=== PATIENT | female | born 1995 | race African-American/Black ===

== ENCOUNTER 2018-05-08 05:04 | Emergency (ER) | payer MEDICAID ==
[~2018-05-08] VITALS: Ht 170.2 cm; Wt 59.0 kg
[~2018-05-08 05:04] MED LIST: DOXYCYCLINE; IBUP-2030; TYLENOL
[2018-05-08] MEDS ORDERED: SODIUM CHLORIDE 0.9% 1,000 ML IV ONE (08:54)
[2018-05-08] MEDS ORDERED: ONDANSETRON HCL 4MG/2ML VIAL IV STA (08:54)
[2018-05-08 09:14] LABS: BASOPHILS % 0.4 % (0.0-2.0); EOSINOPHILS % 0.8 % (0.0-5.0); HEMATOCRIT. 40.3 % (36.0-48.0); HEMOGLOBIN. 13.4 g/dL (12.0-16.0); LYMPHOCYTES % 19.2 % (20.0-50.0); MEAN CORPUSCULAR HEMOGLOBIN 30.5 pg (28.0-32.0); MEAN CORPUSCULAR VOLUME 91.8 fL (81.0-99.0); MEAN PLATELET VOLUME 9.9 fl (7.4-10.4); MONOCYTES % 13.6 % (2.0-8.0); PLATELET 179 x1000/uL (130-400); RED BLOOD CELL COUNT 4.39 mill/uL (4.2-5.4); RED CELL DISTRIBUTION WIDTH 12.9 % (11.6-14.6)
[2018-05-08 09:21] LABS: CHLORIDE 106 mEq/L (98-107)
[2018-05-08 10:32] LABS: CLARITY URINE CLOUDY (CLEAR); COLOR URINE YELLOW (YELLOW); KETONES URINE NEGATIVE (NEGATIVE); LEUKOCYTE ESTERASE URINE 1+ (NEGATIVE); NITRITE URINE POSITIVE (NEGATIVE); OCCULT BLOOD URINE 2+ (NEGATIVE); PH URINE 5.5 (4.5-8.0); PROTEIN URINE NEGATIVE (NEGATIVE); SPECIFIC GRAVITY URINE 1.022 (1.005-1.030)
[2018-05-08 13:34] VITALS: BP 100/61
== END 2018-05-08 13:50 | disposition home or self-care (01) ==
LOC: ER 05:04
DX: A08.4 Viral intestinal infection, unspecified (principal); N39.0 Urinary tract infection, site not specified; Z88.0 Allergy status to penicillin
CPT/HCPCS: 36415; 80053; 81003; 81025; 83690; 85025; 87077; 87086; 87186; 96361; 96374; 99285; J2405; J7030

== ENCOUNTER 2018-07-19 23:38 | Emergency (ER) | payer MEDICAID ==
[~2018-07-19] VITALS: Ht 170.2 cm; Wt 61.0 kg
[2018-07-20] MEDS ORDERED: KETOROLAC 60MG/2ML VIAL IM STA (01:43)
[2018-07-20 03:30] VITALS: BP 129/75
== END 2018-07-20 03:52 | disposition home or self-care (01) ==
LOC: ER 23:38
DX: S20.211A Contusion of right front wall of thorax, initial encounter (principal); S30.0XXA Contusion of lower back and pelvis, initial encounter; M25.552 Pain in left hip; W01.198A Fall on same level from slipping, tripping and stumbling with subsequent striking against other object, initial encounter; Y93.89 Activity, other specified; Y92.090 Kitchen in other non-institutional residence as the place of occurrence of the external cause
CPT/HCPCS: 71101; 81025; 96372; 99284; J1885

== ENCOUNTER 2019-08-07 02:22 | Emergency (ER) | payer MEDICAID ==
[~2019-08-07] VITALS: Ht 170.2 cm; Wt 59.0 kg
[2019-08-07 03:56] VITALS: BP 93/61
== END 2019-08-07 06:05 | disposition home or self-care (01) ==
LOC: ER 02:22
DX: M79.661 Pain in right lower leg (principal)
CPT/HCPCS: 93971; 99284

== ENCOUNTER 2021-07-10 09:51 | Emergency (ER) | payer MEDICAID ==
[~2021-07-10] VITALS: Ht 170.2 cm; Wt 61.0 kg
[2021-07-10 10:01] VITALS: BP 125/90
[2021-07-10 10:27] LABS: CLARITY URINE CLEAR (CLEAR); COLOR URINE YELLOW (YELLOW); KETONES URINE NEGATIVE (NEGATIVE); LEUKOCYTE ESTERASE URINE TRACE (NEGATIVE); NITRITE URINE NEGATIVE (NEGATIVE); OCCULT BLOOD URINE TRACE (NEGATIVE); PH URINE 6.5 (4.5-8.0); PROTEIN URINE NEGATIVE (NEGATIVE); SPECIFIC GRAVITY URINE 1.003 (1.005-1.030); UROBILINOGEN URINE 0.2 E.U./dL (0.2-1.0)
[2021-07-10 10:37] LABS: BASOPHILS % 0.8 % (0.0-2.0); EOSINOPHILS % 1.6 % (0.0-5.0); HEMATOCRIT. 38.6 % (36.0-48.0); HEMOGLOBIN. 13.1 g/dL (12.0-16.0); LYMPHOCYTES % 25.7 % (20.0-50.0); MEAN CORPUSCULAR HEMOGLOBIN 30.8 pg (28.0-32.0); MEAN PLATELET VOLUME 9.6 fl (7.4-10.4); MONOCYTES % 9.4 % (2.0-8.0); NEUTROPHILS % 62.5 % (40.0-76.0); PLATELET 192 x1000/uL (130-400); RED BLOOD CELL COUNT 4.25 mill/uL (4.2-5.4)
== END 2021-07-10 12:03 | disposition home or self-care (01) ==
LOC: ER 09:51
DX: K92.1 Melena (principal); R30.0 Dysuria; Z88.0 Allergy status to penicillin
CPT/HCPCS: 36415; 81003; 85025; 99283

== ENCOUNTER 2023-06-21 10:18 | Emergency (ER) | payer MEDICAID ==
[~2023-06-21] VITALS: Ht 170.2 cm; Wt 75.0 kg
[2023-06-21 10:27] VITALS: O2SAT 95
[2023-06-21] MEDS ORDERED: KETOROLAC 30MG/ML VIAL IM ONE (11:00)
[2023-06-21] MEDS ORDERED: NAPR-681 MT (11:50)
[2023-06-21] MEDS ORDERED: CYCL10TA21 MT (11:50)
[2023-06-21 12:00] VITALS: BP 131/77; PULSE 92; RESP 19; TEMP 98.3
== END 2023-06-21 12:01 | disposition home or self-care (01) ==
LOC: ER 10:18
DX: S13.9XXA Sprain of joints and ligaments of unspecified parts of neck, initial encounter (principal); Z88.0 Allergy status to penicillin; X58.XXXA Exposure to other specified factors, initial encounter; Y93.89 Activity, other specified; Y92.89 Other specified places as the place of occurrence of the external cause; Y99.8 Other external cause status
CPT/HCPCS: 99283; 81025; 72040; 96372; J1885